=== PATIENT | male | born 1960 | race Two or more races ===

== ENCOUNTER 2023-11-21 20:09 | Inpatient (IN) | payer MEDICARE, OTHER ==
[~2023-11-21] VITALS: Ht 165.1 cm; Wt 78.0 kg
[2023-11-21] MEDS ORDERED: METO-358 PO (20:35)
[2023-11-21] MEDS ORDERED: FURO20TA4 PO (20:35)
[2023-11-21] MEDS ORDERED: GABA-532 PO (20:35)
[2023-11-21] MEDS ORDERED: ATOR40TA PO (20:35)
[2023-11-21] MEDS ORDERED: POTA10TA10 PO (20:35)
[2023-11-21] MEDS ORDERED: LEVO50TA8 PO (20:35)
[2023-11-21] MEDS ORDERED: APIX5TAB PO (20:35)
[2023-11-21] MEDS ORDERED: IV NORMAL SALINE 1000 ML BAG IV ONE (20:45)
[2023-11-21] MEDS ORDERED: CEFEPIME HCL 1 G VIAL ONE (21:12)
[2023-11-21] MEDS: CEFEPIME HCL 2 G in IV DEXTROSE 5% 50 ML IV ONE (21:13)
[2023-11-21 21:27] LABS: BASOPHILS # (AUTO) 0.1 K/UL (0.0-0.2); BASOPHILS % (AUTO) 0.5 % (0.0-2.0); EOSINOPHILS % (AUTO) 0.1 % (0.0-7.0); HEMATOCRIT 36.7 % (36.7-47.1); HEMOGLOBIN 12.1 g/dL (12.5-16.3); LYMPHOCYTES # (AUTO) 0.8 K/uL (0.8-4.8); LYMPHOCYTES % (AUTO) 7.7 % (20.5-51.5); MEAN CORPUSCULAR HEMOGLOBIN 31.6 uug (23.8-33.4); MEAN CORPUSCULAR HGB CONC 33 g/dL (32.5-36.3); MONOCYTES # (AUTO) 0.4 K/uL (0.1-1.30); NEUTROPHILS % (AUTO) 87.7 % (38.5-71.5); PLATELET COUNT (AUTO) 97 K/uL (152-348); RED BLOOD CELL COUNT(AUTO) 3.82 MIL/uL (4.06-5.63); RED CELL DISTRIBUTION WIDTH 14.6 % (12.1-16.2); WHITE BLOOD COUNT (AUTO) 10.2 K/uL (3.6-10.2)
[2023-11-21 21:29] LABS: CARBON DIOXIDE 23 mmol/L (21-32); CHLORIDE 102 mmol/L (98-107); CREATININE 1.8 mg/dL (0.6-1.3); POTASSIUM 3.9 mmol/L (3.5-5.1); SODIUM SERUM 136 mmol/L (136-145)
[2023-11-21] MEDS ORDERED: ACETAMINOPHEN 160 MG/5 ML UDC PO ONE (21:42)
[2023-11-21] MEDS ORDERED: ACETAMINOPHEN 325 MG TABLET ONE (21:45)
[2023-11-21] MEDS: ACETAMINOPHEN 650 MG/20.3 ML LIQUID UDC PO ONE (21:47)
[2023-11-21] MEDS: IV NS 1000 ML 1,000 ML IV ONE ×2 (21:48→23:55)
[2023-11-21] MEDS: IV NORMAL SALINE 500 ML IV ONE ×2 (21:48→23:55)
[2023-11-21 21:58] LABS: ALANINE AMINOTRANSFERASE 24 U/L (16-63); ALKALINE PHOSPHATASE 125 U/L (50-136); ASPARTATE AMINOTRANSFERASE 10 U/L (15-37); BILIRUBIN,DIRECT 0.5 mg/dL (0.0-0.2); CALCIUM 8.4 mg/dL (8.5-10.1); GLUCOSE 300 mg/dL (74-106); NT-PRO BNP 5857 pg/mL (0-125); UREA NITROGEN, BLOOD 45 mg/dL (7-18)
[2023-11-21] MEDS: ACETAMINOPHEN 325 MG TABLET PO ONE (22:00)
[2023-11-21 22:35] LABS: *BILIRUBIN,URIN 1+ (NEGATIVE); *BLOOD, URINE 2+ (NEGATIVE); *KETONES,URINE TRACE (NEGATIVE); LEUKOCYTE ESTERASE ,URINE 1+ (NEGATIVE); NITRITE, URINE NEGATIVE (NEGATIVE); PH,URINE 5.5 (5.0-8.0); UGLUCOSE 2+ (NEGATIVE)
[2023-11-21 22:36] LABS: *COLOR,URINE DARK YELLOW (YELLOW); *PROTEIN,URINE 3+ (NEGATIVE)
[2023-11-21 22:37] LABS: *CLARITY,URINE CLOUDY (CLEAR)
[2023-11-21 23:00] LABS: BACTERIA,URINE MODERATE /HPF (NONE SEEN); SQUAMOUS EPITHELIAL CELL,UR MODERATE /HPF (NONE SEEN); WBC,URINE 80-100 /HPF (0-3)
[2023-11-21 23:01] LABS: RBC,URINE 20-50 /HPF (0-3)
[2023-11-21 23:10] LABS: BAND % (MANUAL) 3 % (0-10); LYMPHOCYTES % (MANUAL) 10 % (20-40); MONOCYTES % (MANUAL) 6 % (2-10); NEUTROPHILS % (MANUAL) 81 % (42-75); PLATELET ESTIMATE DECREASED
[2023-11-21 23:11] LABS: ANISOCYTOSIS 1+; HYPOCHROMASIA 2+
[2023-11-21] MEDS ORDERED: METRONIDAZOLE 500 MG/NS 100ML 100 ML IV ONE (23:46)
[2023-11-21] MEDS: METRONIDAZOLE 500 MG/NS 100 ML PIGGYBACK IV ONE (23:54)
[2023-11-22] MEDS ORDERED: ASPIRIN EC 81 MG TABLET.DR PO ONE (03:03)
[2023-11-22] MEDS ORDERED: CLOPIDOGREL 75 MG TABLET ONE (03:03)
[2023-11-22] MEDS: CLOPIDOGREL 75 MG TABLET PO ONE (03:10)
[2023-11-22] MEDS: ASPIRIN 81 MG TAB.CHEW PO ONE (03:10)
[2023-11-22] MEDS ORDERED: ASPIRIN 81 MG TAB.CHEW PO ONE (03:15)
[2023-11-22] MEDS ORDERED: MAGNESIUM HYDROXIDE 30 ML LIQUID UDC PO PRN (03:15)
[2023-11-22] MEDS ORDERED: REMEDY ESSENTIAL ZINC PASTE 113 GM TP PRN (03:15)
[2023-11-22 06:00] VITALS: BP 104/50; TEMP 98.6; O2SAT 97
[2023-11-22] MEDS ORDERED: CEFEPIME HCL 1 G in IV DEXTROSE 5% 50 ML IV SCH (06:00)
[2023-11-22] MEDS ORDERED: METRONIDAZOLE 500 MG/NS 100ML 100 ML IV ONE (06:01)
[2023-11-22] MEDS: FUROSEMIDE 20 MG/2 ML VIAL IV SCH (06:06)
[2023-11-22] MEDS: METRONIDAZOLE 500 MG/NS 100ML 500 MG in PREMIXED 1 EACH IV SCH (06:06)
[2023-11-22] MEDS: LEVOTHYROXINE SODIUM 50 MCG TABLET PO SCH (06:07)
[2023-11-22 08:00] VITALS: BP 121/70; TEMP 97.8; O2SAT 97
[2023-11-22] MEDS: PANTOPRAZOLE SODIUM 40 MG VIAL IV SCH (08:26)
[2023-11-22] MEDS: CEFEPIME HCL 2 GM in IV DEXTROSE 5% 100 ML IV SCH (08:27)
[2023-11-22] MEDS: METOPROLOL SUCCINATE XL 50 MG TAB.SR.24H PO SCH (08:27)
[2023-11-22] MEDS ORDERED: CLOPIDOGREL 75 MG TABLET PO ONE (09:00)
[2023-11-22] MEDS ORDERED: POTASSIUM CHLORIDE 10 MEQ TAB.PRT.SR PO SCH ×2 (09:00)
[2023-11-22] MEDS ORDERED: GABAPENTIN 100 MG CAPSULE PO SCH ×2 (09:00)
[2023-11-22] MEDS ORDERED: CLOPIDOGREL 75 MG TABLET PO SCH (09:00)
[2023-11-22 09:17] LABS: BASOPHILS % (AUTO) 0.5 % (0.0-2.0); EOSINOPHILS # (AUTO) 0.1 K/uL (0.0-0.7); EOSINOPHILS % (AUTO) 0.5 % (0.0-7.0); LYMPHOCYTES # (AUTO) 0.4 K/uL (0.8-4.8); LYMPHOCYTES % (AUTO) 4.6 % (20.5-51.5); MEAN CORPUSCULAR HEMOGLOBIN 31.6 uug (23.8-33.4); MEAN CORPUSCULAR HGB CONC 32 g/dL (32.5-36.3); MONOCYTES # (AUTO) 0.3 K/uL (0.1-1.30); MONOCYTES % (AUTO) 2.7 % (0.0-11.0); NEUTROPHILS # (AUTO) 8.5 K/uL (1.8-8.9); NEUTROPHILS % (AUTO) 91.7 % (38.5-71.5); PLATELET COUNT (AUTO) 89 K/uL (152-348); RED BLOOD CELL COUNT(AUTO) 3.78 MIL/uL (4.06-5.63); RED CELL DISTRIBUTION WIDTH 14.8 % (12.1-16.2); WHITE BLOOD COUNT (AUTO) 9.3 K/uL (3.6-10.2)
[2023-11-22 09:22] LABS: DIFFERENTIAL COMMENT 1
[2023-11-22] MEDS: APIXABAN 5 MG TABLET PO SCH (09:28)
[2023-11-22 09:33] LABS: CALCIUM 8.4 mg/dL (8.5-10.1); CREATININE 1.7 mg/dL (0.6-1.3); POTASSIUM 3.9 mmol/L (3.5-5.1)
[2023-11-22 09:38] LABS: BILIRUBIN,TOTAL 0.9 mg/dL (0.2-1.0); MAGNESIUM 1.9 mg/dL (1.8-2.4); PHOSPHOROUS 3.3 mg/dL (2.5-4.9); TOTAL PROTEIN, SERUM 6.1 g/dL (6.4-8.2)
[2023-11-22 10:00] VITALS: BP 114/80; O2SAT 99
[2023-11-22] MEDS ORDERED: METF-440 PO (10:40)
[2023-11-22] MEDS ORDERED: OXYC-128 PO (10:40)
[2023-11-22] MEDS ORDERED: MONT10TA33 PO (10:40)
[2023-11-22] MEDS ORDERED: CLOT15CR5 TP (10:48)
[2023-11-22 12:00] VITALS: BP 122/89; TEMP 97.5; O2SAT 97
[2023-11-22 16:00] VITALS: BP 114/78; TEMP 99.2; O2SAT 97
[2023-11-22] MEDS ORDERED: INSULIN REGULAR, HUMAN 300 UNITS/3 ML VIAL SQ PRN (16:30)
[2023-11-22] MEDS ORDERED: INSULIN REGULAR, HUMAN 300 UNIT/3 ML VIAL SQ PRN (16:30)
[2023-11-22] MEDS ORDERED: DEXTROSE 50% 50 ML DISP.SYRIN IV PRN ×2 (16:30→20:45)
[2023-11-22] MEDS: ONDANSETRON 4 MG/2 ML VIAL IV PRN (17:07)
[2023-11-22] MEDS: BLOOD SUGAR DIAGNOSTIC 1 EACH STRIP VI SCH ×2 (17:16→23:58)
[2023-11-22] MEDS: ATORVASTATIN 40 MG TABLET PO SCH (20:45)
[2023-11-22] MEDS: IV D5/ 0.9% NACL 1,000 ML IV PRN (20:45)
[2023-11-22] MEDS ORDERED: CEFEPIME HCL 1 G VIAL ONE (21:16)
[2023-11-22] MEDS: CEFEPIME HCL 1 G in IV DEXTROSE 5% 50 ML IV SCH (21:31)
[2023-11-22 23:55] VITALS: BP 95/57; TEMP 99; O2SAT 97
[2023-11-22] MEDS: INSULIN REGULAR, HUMAN 300 UNIT/3 ML VIAL SQ PRN (23:58)
[2023-11-23] VITALS (7 sets, daily range): BP systolic 105–114; BP diastolic 44–72; TEMP 97.5–98.5; O2SAT 95–98
[2023-11-23 07:15] LABS: BASOPHILS % (AUTO) 0.2 % (0.0-2.0); EOSINOPHILS % (AUTO) 0.6 % (0.0-7.0); HEMATOCRIT 33.6 % (36.7-47.1); HEMOGLOBIN 11.1 g/dL (12.5-16.3); LYMPHOCYTES # (AUTO) 0.8 K/uL (0.8-4.8); MEAN CORPUSCULAR HEMOGLOBIN 31.5 uug (23.8-33.4); MEAN CORPUSCULAR HGB CONC 33 g/dL (32.5-36.3); MEAN CORPUSCULAR VOLUME 95.8 fL (73.0-96.2); MONOCYTES # (AUTO) 0.4 K/uL (0.1-1.30); MONOCYTES % (AUTO) 4.9 % (0.0-11.0); NEUTROPHILS # (AUTO) 7.4 K/uL (1.8-8.9); NEUTROPHILS % (AUTO) 85.3 % (38.5-71.5); PLATELET COUNT (AUTO) 78 K/uL (152-348); RED BLOOD CELL COUNT(AUTO) 3.51 MIL/uL (4.06-5.63); RED CELL DISTRIBUTION WIDTH 14.5 % (12.1-16.2); WHITE BLOOD COUNT (AUTO) 8.7 K/uL (3.6-10.2)
[2023-11-23 07:20] LABS: DIFFERENTIAL COMMENT 1
[2023-11-23 07:29] LABS: ALBUMIN 1.7 g/dL (3.4-5.0); BILIRUBIN,TOTAL 0.8 mg/dL (0.2-1.0); CALCIUM 8.3 mg/dL (8.5-10.1); CREATININE 1.7 mg/dL (0.6-1.3); MAGNESIUM 1.9 mg/dL (1.8-2.4); PHOSPHOROUS 3.2 mg/dL (2.5-4.9); POTASSIUM 3.5 mmol/L (3.5-5.1); TOTAL PROTEIN, SERUM 5.8 g/dL (6.4-8.2)
[2023-11-23] MEDS: ACETAMINOPHEN 325 MG TABLET PO PRN (09:47)
[2023-11-23] MEDS: CLOTRIMAZOLE/BETAMET DIPROP CREAM 15 GM TUBE TP SCH (18:11)
[2023-11-23] MEDS: SODIUM CHLORIDE 3% FOR INHALATION 15 ML NEBU IH ONE (20:15)
[2023-11-24] VITALS: BP 96/44; TEMP 98.5; O2SAT 97
[2023-11-24 04:00] VITALS: BP 94/57; TEMP 98.5; O2SAT 99
[2023-11-24] MEDS: PANTOPRAZOLE SODIUM 40 MG TABLET.DR PO SCH (07:24)
[2023-11-24 07:28] LABS: BASOPHILS % (AUTO) 0.1 % (0.0-2.0); EOSINOPHILS % (AUTO) 0.2 % (0.0-7.0); HEMATOCRIT 32.2 % (36.7-47.1); HEMOGLOBIN 10.6 g/dL (12.5-16.3); LYMPHOCYTES # (AUTO) 0.7 K/uL (0.8-4.8); LYMPHOCYTES % (AUTO) 11.3 % (20.5-51.5); MEAN CORPUSCULAR HEMOGLOBIN 31.6 uug (23.8-33.4); MEAN CORPUSCULAR HGB CONC 33 g/dL (32.5-36.3); MEAN CORPUSCULAR VOLUME 96.2 fL (73.0-96.2); MONOCYTES # (AUTO) 0.5 K/uL (0.1-1.30); MONOCYTES % (AUTO) 8.2 % (0.0-11.0); NEUTROPHILS % (AUTO) 80.2 % (38.5-71.5); PLATELET COUNT (AUTO) 88 K/uL (152-348); RED BLOOD CELL COUNT(AUTO) 3.34 MIL/uL (4.06-5.63); RED CELL DISTRIBUTION WIDTH 14.3 % (12.1-16.2); WHITE BLOOD COUNT (AUTO) 6.3 K/uL (3.6-10.2)
[2023-11-24 07:46] LABS: ALBUMIN 1.7 g/dL (3.4-5.0); BILIRUBIN,TOTAL 0.7 mg/dL (0.2-1.0); CALCIUM 8.1 mg/dL (8.5-10.1); CREATININE 1.5 mg/dL (0.6-1.3); MAGNESIUM 2.1 mg/dL (1.8-2.4); PHOSPHOROUS 2.2 mg/dL (2.5-4.9); POTASSIUM 3.3 mmol/L (3.5-5.1); TOTAL PROTEIN, SERUM 5.7 g/dL (6.4-8.2)
[2023-11-24 08:00] VITALS: BP 117/61; TEMP 97.7; O2SAT 99
[2023-11-24] MEDS: MONTELUKAST SODIUM 10 MG TABLET PO SCH (09:24)
[2023-11-24] MEDS: POTASSIUM CHLORIDE 50 ML IV SCH (09:28)
[2023-11-24 12:34] VITALS: BP 114/69; TEMP 98; O2SAT 99
[2023-11-24] MEDS: NEUTRA PHOS PACKET PO ONE (17:33)
[2023-11-24 20:22] VITALS: BP 122/59; TEMP 98.8; O2SAT 94
[2023-11-25 05:48] VITALS: BP 120/67; TEMP 97.7; O2SAT 94
[2023-11-25 07:00] LABS: CALCIUM 8.4 mg/dL (8.5-10.1); CREATININE 1.3 mg/dL (0.6-1.3); POTASSIUM 3.4 mmol/L (3.5-5.1)
[2023-11-25 08:00] VITALS: BP 117/60; TEMP 98.6; O2SAT 94
[2023-11-25] MEDS: GLIMEPIRIDE 2 MG TABLET PO SCH (09:03)
[2023-11-25] MEDS: NEUTRA PHOS PACKET PO ONE (11:15)
[2023-11-25] MEDS: POTASSIUM CHLORIDE 10 MEQ TAB.PRT.SR PO ONE (11:16)
[2023-11-25 12:00] VITALS: BP 124/69; TEMP 97.9; O2SAT 96
[2023-11-25] MEDS: METRONIDAZOLE 500 MG TABLET PO SCH (13:53)
[2023-11-25 15:06] VITALS: BP 140/81; TEMP 97.9; O2SAT 96
[2023-11-25 16:00] VITALS: BP 140/81; TEMP 98.1; O2SAT 96
[2023-11-25 20:31] VITALS: BP 135/75; TEMP 97.7; O2SAT 96
[2023-11-26 06:41] VITALS: BP 135/64; TEMP 97.7; O2SAT 97
[2023-11-26 07:18] LABS: BASOPHILS % (AUTO) 0.2 % (0.0-2.0); EOSINOPHILS % (AUTO) 0.2 % (0.0-7.0); HEMATOCRIT 34.3 % (36.7-47.1); HEMOGLOBIN 11.4 g/dL (12.5-16.3); LYMPHOCYTES # (AUTO) 1.2 K/uL (0.8-4.8); LYMPHOCYTES % (AUTO) 18.2 % (20.5-51.5); MEAN CORPUSCULAR HEMOGLOBIN 31.8 uug (23.8-33.4); MEAN CORPUSCULAR HGB CONC 33 g/dL (32.5-36.3); MEAN CORPUSCULAR VOLUME 95.9 fL (73.0-96.2); MONOCYTES # (AUTO) 0.7 K/uL (0.1-1.30); MONOCYTES % (AUTO) 9.8 % (0.0-11.0); NEUTROPHILS # (AUTO) 4.9 K/uL (1.8-8.9); NEUTROPHILS % (AUTO) 71.6 % (38.5-71.5); PLATELET COUNT (AUTO) 154 K/uL (152-348); RED BLOOD CELL COUNT(AUTO) 3.58 MIL/uL (4.06-5.63); RED CELL DISTRIBUTION WIDTH 14.8 % (12.1-16.2); WHITE BLOOD COUNT (AUTO) 6.9 K/uL (3.6-10.2)
[2023-11-26 07:32] LABS: ALBUMIN 1.9 g/dL (3.4-5.0); BILIRUBIN,TOTAL 0.9 mg/dL (0.2-1.0); CALCIUM 8.3 mg/dL (8.5-10.1); CREATININE 1.1 mg/dL (0.6-1.3); MAGNESIUM 1.8 mg/dL (1.8-2.4); PHOSPHOROUS 2.1 mg/dL (2.5-4.9); POTASSIUM 3.4 mmol/L (3.5-5.1); TOTAL PROTEIN, SERUM 5.8 g/dL (6.4-8.2)
[2023-11-26 08:06] LABS: DIFFERENTIAL COMMENT 1
[2023-11-26] MEDS: METOPROLOL SUCCINATE XL 50 MG TAB.SR.24H PO SCH (08:46)
[2023-11-26] MEDS: POTASSIUM CHLORIDE 20 MEQ POWDER PACKET GT ONE (08:46)
[2023-11-26 11:38] VITALS: BP 128/68; TEMP 98.7; O2SAT 96
[2023-11-26] MEDS ORDERED: APIX5TAB PO (12:48)
[2023-11-26] MEDS ORDERED: PANT40TA49 PO (12:48)
[2023-11-26] MEDS ORDERED: CEFU500T66 PO (12:48)
[2023-11-26] MEDS ORDERED: METR500T PO (12:48)
[2023-11-26] MEDS ORDERED: GLIM2TAB PO (12:48)
[2023-11-26] MEDS ORDERED: LEVO25TA9 PO (12:48)
[2023-11-26] MEDS ORDERED: NEUTRA PHOS PACKET PO ONE (16:00)
[2023-11-26 16:14] VITALS: BP 137/85; TEMP 98.5; O2SAT 98
== END 2023-11-26 16:00 | disposition home or self-care (01) | DRG 720 ==
LOC: ER 20:10 → CCU 11-22 03:20 → TELE-TD3 11-22 15:18 → MEDSURG3 11-24 09:41
PROVIDERS: ATTEND Internal Medicine
DX: A41.51 Sepsis due to Escherichia coli [E. coli] (principal); N17.0 Acute kidney failure with tubular necrosis; I21.4 Non-ST elevation (NSTEMI) myocardial infarction; R65.21 Severe sepsis with septic shock; I50.43 Acute on chronic combined systolic (congestive) and diastolic (congestive) heart failure; E43 Unspecified severe protein-calorie malnutrition; I48.0 Paroxysmal atrial fibrillation; E11.65 Type 2 diabetes mellitus with hyperglycemia; D53.9 Nutritional anemia, unspecified; I67.82 Cerebral ischemia; J01.00 Acute maxillary sinusitis, unspecified; N39.0 Urinary tract infection, site not specified; K57.32 Diverticulitis of large intestine without perforation or abscess without bleeding; I25.10 Atherosclerotic heart disease of native coronary artery without angina pectoris; Z95.1 Presence of aortocoronary bypass graft; Z79.01 Long term (current) use of anticoagulants; E78.5 Hyperlipidemia, unspecified; I11.0 Hypertensive heart disease with heart failure; I21.A1 Myocardial infarction type 2; E66.9 Obesity, unspecified; Z68.28 Body mass index [BMI] 28.0-28.9, adult; G89.29 Other chronic pain; N40.0 Benign prostatic hyperplasia without lower urinary tract symptoms; I70.91 Generalized atherosclerosis; S80.212A Abrasion, left knee, initial encounter; W18.30XA Fall on same level, unspecified, initial encounter; Y93.9 Activity, unspecified; Y92.039 Unspecified place in apartment as the place of occurrence of the external cause; Z91.81 History of falling; Z79.890 Hormone replacement therapy; Z79.899 Other long term (current) drug therapy; R04.0 Epistaxis; E88.09 Other disorders of plasma-protein metabolism, not elsewhere classified; E03.9 Hypothyroidism, unspecified; E05.80 Other thyrotoxicosis without thyrotoxic crisis or storm; T38.1X5A Adverse effect of thyroid hormones and substitutes, initial encounter
CPT/HCPCS: 36415; 70030-TC; 70450; 71045; 73560; 76770; 83605; 83735; 84100; 84443; 84484; 85025; 85730; 87040; 87077; 93005; 93307; A4663; G0378; J0692; J1815; J1940; J2405; J2470; J3480; J3490; J7040; J7042

== ENCOUNTER 2024-07-01 21:07 | Emergency (ER) | payer OTHER ==
[~2024-07-01] VITALS: Ht 160 cm; Wt 72.6 kg
[~2024-07-01 21:07] MED LIST: APIX5TAB PO; ATOR40TA PO; CEFU500T66 PO; CLOT15CR5 TP; FURO20TA4 PO; GABA-532 PO; GLIM2TAB PO; LEVO25TA9 PO; METO-358 PO; METR500T PO; MONT10TA33 PO; OXYC-128 PO; PANT40TA49 PO; POTA10TA10 PO
[2024-07-01] MEDS ORDERED: MAGNESIUM CITRATE 296 ML BOTTLE ONE (22:16)
[2024-07-01] MEDS ORDERED: LACTULOSE 20 G/30 ML LIQUID UDC ONE (22:16)
[2024-07-01] MEDS: LACTULOSE 20 G/30 ML LIQUID UDC PO ONE (22:17)
[2024-07-01] MEDS: MAGNESIUM CITRATE 296 ML BOTTLE PO ONE (22:17)
[2024-07-01 22:47] VITALS: BP 138/90; TEMP 207.3; O2SAT 97
== END 2024-07-01 22:53 | disposition left against medical advice (07) ==
LOC: ER 21:07
DX: K59.00 Constipation, unspecified (principal); E78.5 Hyperlipidemia, unspecified; I48.91 Unspecified atrial fibrillation; Z79.84 Long term (current) use of oral hypoglycemic drugs; Z79.890 Hormone replacement therapy; Z79.899 Other long term (current) drug therapy
CPT/HCPCS: 74018; A4606; A4663